=== PATIENT | female | born 1960 | race Caucasian/White ===

== ENCOUNTER 2017-06-07 08:56 | Emergency (ER) | payer MEDICAID ==
[~2017-06-07] VITALS: Ht 162.6 cm; Wt 75.0 kg
[~2017-06-07 08:56] MED LIST: CATAPRES PO; CATAPRES TD; CATAPRES0.1 MG; CLONIDINE HCL0.1 MG; DIO160 PO; DIOVAN320 MG; HYDRALAZINE HCL25 MG; HYDRALAZINE HY100 MG; HYDRALAZINE100 MG PO; HYDRALAZINE50 MG PO; ISOSORBIDE DINI10 MG PO; LABETALOL HCL200 MG; METHADONE HCL5 MG; METHADONE PO; NIT0.4 SL; NITROSTAT0.4 MG; NORCO1 TA2; PRI20 PO; RENVELA800 M1; RENVELA800 MG PO; RXMED PO; XANAX0.25 MG; [UNRECOGNIZED DRUG - CODE] PO
[2017-06-07 10:42] VITALS: BP 135/77
== END 2017-06-07 10:42 | disposition home or self-care (01) ==
LOC: ED 08:56
DX: J20.9 Acute bronchitis, unspecified (principal); I12.9 Hypertensive chronic kidney disease with stage 1 through stage 4 chronic kidney disease, or unspecified chronic kidney disease; N18.9 Chronic kidney disease, unspecified

== ENCOUNTER 2017-08-18 11:35 | Emergency (ER) | payer MEDICAID ==
[2017-08-18 13:08] VITALS: BP 194/81
== END 2017-08-18 15:10 | disposition left against medical advice (07) ==
LOC: ED 11:35
DX: Z53.21 Procedure and treatment not carried out due to patient leaving prior to being seen by health care provider (principal)

== ENCOUNTER 2017-10-20 22:24 | Inpatient (IN) | payer MEDICAID ==
[~2017-10-20] VITALS: Ht 167.6 cm; Wt 67.2 kg
[~2017-10-20 22:24] MED LIST changes: -LABETALOL HCL200 MG; +LABETALOL HYDR300 MG
[2017-10-20 22:53] VITALS: Ht 167.6 cm; Wt 67.2 kg
[2017-10-21] VITALS (7 sets, daily range): BP systolic 139–187; BP diastolic 75–97
[2017-10-21 00:47] LABS: BASOPHIL % 0.6 % (0-2)
[2017-10-21 00:50] LABS: PLATELET COUNT 121 x10^3mcL (130-400); RED CELL DISTRIBUTION WIDTH 17.3 % (11.5-14.5)
[2017-10-21 01:34] LABS: BILIRUBIN TOTAL 0.5 mg/dL (0.20-1.00); CALCIUM 7.3 mg/dL (8.5-10.1); CARBON DIOXIDE 30.7 mmol/L (21-32); POTASSIUM SERUM 4.6 mmol/L (3.5-5.1); TOTAL PROTEIN, SERUM 8.2 g/dL (6.4-8.2)
[2017-10-21 01:35] LABS: ALBUMIN 2.8 g/dL (3.4-5.0); CREATININE SERUM 6.6 mg/dL (0.6-1.0)
[2017-10-21 03:53] LABS: MAGNESIUM 2.2 mg/dL (1.8-2.4); PHOSPHOROUS 3.2 mg/dL (2.5-4.9)
[2017-10-21 04:02] LABS: FREE T4 1.57 ng/dL (0.76-1.46); T4(THYROXINE) 9.9 ug/dL (4.7-13.3)
[2017-10-21 04:03] LABS: T3 TOTAL 0.69 ng/mL
[2017-10-21 04:13] LABS: CHOLESTEROL/HDL RATIO 2.1
[2017-10-21 06:27] LABS: CALCIUM 7.4 mg/dL (8.5-10.1); CARBON DIOXIDE 30.2 mmol/L (21-32); POTASSIUM SERUM 4.8 mmol/L (3.5-5.1)
[2017-10-21 06:39] LABS: CREATININE SERUM 6.9 mg/dL (0.6-1.0)
[2017-10-21 06:57] LABS: PLATELET COUNT 108 x10^3mcL (130-400); RED CELL DISTRIBUTION WIDTH 16.9 % (11.5-14.5)
[2017-10-21 10:58] LABS: BAND NEUTROPHIL 2 % (0-10); BASOPHIL 0 % (0-2); MONOCYTE 9 % (0-7); SEGMENTED NEUTROPHILS 69 % (37-75)
[2017-10-21 11:00] LABS: PLATELET MORPHOLOGY PLATELETS DECREASED; rbc morphology (normal/abnorm) ABNORMAL (NORMAL)
[2017-10-21 11:01] LABS: ovalocyte/elliptocyte 1+; target cell (codocyte) 1+
[2017-10-22] VITALS (7 sets, daily range): BP systolic 136–190; BP diastolic 78–104
[2017-10-22 06:47] LABS: CALCIUM 7.5 mg/dL (8.5-10.1); CARBON DIOXIDE 26.6 mmol/L (21-32); PHOSPHOROUS 3.2 mg/dL (2.5-4.9); POTASSIUM SERUM 3.9 mmol/L (3.5-5.1)
[2017-10-22 06:51] LABS: BASOPHIL % 0.4 % (0-2)
[2017-10-22 06:54] LABS: CREATININE SERUM 5.3 mg/dL (0.6-1.0)
[2017-10-22 07:10] LABS: PLATELET COUNT 108 x10^3mcL (130-400); RED CELL DISTRIBUTION WIDTH 16.7 % (11.5-14.5)
[2017-10-23 05:22] VITALS: BP 159/77
[2017-10-23 06:46] LABS: PLATELET COUNT 96 x10^3mcL (130-400); RED CELL DISTRIBUTION WIDTH 17.7 % (11.5-14.5)
[2017-10-23 06:59] LABS: CALCIUM 7.3 mg/dL (8.5-10.1); CARBON DIOXIDE 25.9 mmol/L (21-32); POTASSIUM SERUM 4.4 mmol/L (3.5-5.1)
[2017-10-23 07:05] LABS: MAGNESIUM 2.1 mg/dL (1.8-2.4)
[2017-10-23 07:20] LABS: CREATININE SERUM 7.3 mg/dL (0.6-1.0)
[2017-10-23] MEDS ORDERED: LEVAQUIN750 MG PO (07:34)
[2017-10-23] MEDS ORDERED: BD LACTINEX1.4 MG PO (07:35)
[2017-10-23] MEDS ORDERED: REG10 PO (07:38)
[2017-10-23 08:56] LABS: BAND NEUTROPHIL 3 % (0-10); MONOCYTE 12 % (0-7); SEGMENTED NEUTROPHILS 61 % (37-75)
[2017-10-23 08:57] LABS: PLATELET MORPHOLOGY PLATELETS DECREASED; ovalocyte/elliptocyte 1+; rbc morphology (normal/abnorm) ABNORMAL (NORMAL)
[2017-10-23 09:34] VITALS: BP 161/95
[2017-10-23 11:08] VITALS: BP 113/75; BP 161/95
== END 2017-10-23 14:12 | disposition home or self-care (01) | DRG 247 ==
LOC: ED 22:24 → DU 10-21 01:11 → MU 10-23 08:57
PROVIDERS: Emergency Medicine; Family Medicine
DX: K56.7 Ileus, unspecified (principal); N17.0 Acute kidney failure with tubular necrosis; E43 Unspecified severe protein-calorie malnutrition; J18.9 Pneumonia, unspecified organism; N18.6 End stage renal disease; I12.0 Hypertensive chronic kidney disease with stage 5 chronic kidney disease or end stage renal disease; D69.6 Thrombocytopenia, unspecified; E87.1 Hypo-osmolality and hyponatremia; F11.20 Opioid dependence, uncomplicated; F41.9 Anxiety disorder, unspecified; D63.1 Anemia in chronic kidney disease; F17.210 Nicotine dependence, cigarettes, uncomplicated; Z99.2 Dependence on renal dialysis; Z68.26 Body mass index [BMI] 26.0-26.9, adult
CPT/HCPCS: 83880; 84439; 94150; 99406; J0696; J1200; J2405; J7030; J7620; J8597; Q0092; Q0162; Q0163; Q9967

== ENCOUNTER 2017-10-26 15:52 | Emergency (ER) | payer MEDICAID ==
[~2017-10-26] VITALS: Ht 167.6 cm; Wt 29.6 kg
[~2017-10-26 15:52] MED LIST changes: +BD LACTINEX1.4 MG PO; +LEVAQUIN750 MG PO; +REG10 PO
[2017-10-26 16:59] LABS: BASOPHIL % 0.4 % (0-2)
[2017-10-26 17:06] LABS: PLATELET COUNT 112 x10^3mcL (130-400); RED CELL DISTRIBUTION WIDTH 17.4 % (11.5-14.5)
[2017-10-26 17:08] LABS: CALCIUM 7.5 mg/dL (8.5-10.1); CARBON DIOXIDE 33.4 mmol/L (21-32); CREATININE SERUM 3.8 mg/dL (0.6-1.0); POTASSIUM SERUM 3.2 mmol/L (3.5-5.1)
[2017-10-26 17:12] LABS: ALBUMIN 2.4 g/dL (3.4-5.0); BILIRUBIN TOTAL 0.4 mg/dL (0.20-1.00); TOTAL PROTEIN, SERUM 7.6 g/dL (6.4-8.2)
[2017-10-26 19:09] VITALS: BP 134/74
== END 2017-10-26 19:09 | disposition home or self-care (01) ==
LOC: ED 15:52
PROVIDERS: Emergency Medicine
DX: J45.901 Unspecified asthma with (acute) exacerbation (principal); E11.22 Type 2 diabetes mellitus with diabetic chronic kidney disease; I13.2 Hypertensive heart and chronic kidney disease with heart failure and with stage 5 chronic kidney disease, or end stage renal disease; I50.9 Heart failure, unspecified; N18.6 End stage renal disease; Z99.2 Dependence on renal dialysis; Z88.0 Allergy status to penicillin
CPT/HCPCS: 36415; 83880; J7512; J7613; J7644

== ENCOUNTER 2017-10-28 17:53 | Emergency (ER) | payer MEDICAID ==
[~2017-10-28] VITALS: Ht 170.2 cm; Wt 65.8 kg
[~2017-10-28 17:53] MED LIST changes: -CATAPRES0.1 MG; +CATAPRES0.3 MG PO
[2017-10-28 17:56] VITALS: Ht 170.2 cm; Wt 65.8 kg
[2017-10-28 19:07] LABS: BASOPHIL % 0.3 % (0-2); PLATELET COUNT 139 x10^3mcL (130-400)
[2017-10-28 19:08] LABS: RED CELL DISTRIBUTION WIDTH 17.5 % (11.5-14.5)
[2017-10-28 19:11] LABS: CALCIUM 8.3 mg/dL (8.5-10.1); CARBON DIOXIDE 31.7 mmol/L (21-32); POTASSIUM SERUM 4.3 mmol/L (3.5-5.1)
[2017-10-28 19:16] LABS: BILIRUBIN TOTAL 0.4 mg/dL (0.20-1.00)
[2017-10-28 19:18] LABS: ALBUMIN 2.7 g/dL (3.4-5.0); TOTAL PROTEIN, SERUM 8.4 g/dL (6.4-8.2)
[2017-10-28 21:21] LABS: MAGNESIUM 2.4 mg/dL (1.8-2.4); PHOSPHOROUS 2.1 mg/dL (2.5-4.9)
[2017-10-28 21:22] LABS: CHOLESTEROL/HDL RATIO 2.3
[2017-10-28 21:29] LABS: T3 TOTAL 0.68 ng/mL
[2017-10-28 21:31] LABS: FREE T4 1.23 ng/dL (0.76-1.46); FREE THYROXINE INDEX 2.4 ug/dL (1.4-4.5); T4(THYROXINE) 7.7 ug/dL (4.7-13.3)
[2017-10-29 03:32] LABS: BASOPHIL % 0.1 % (0-2); PLATELET COUNT 139 x10^3mcL (130-400)
[2017-10-29 03:35] LABS: RED CELL DISTRIBUTION WIDTH 17.6 % (11.5-14.5)
[2017-10-29 04:26] LABS: CARBON DIOXIDE 31.9 mmol/L (21-32); POTASSIUM SERUM 5.5 mmol/L (3.5-5.1)
[2017-10-29 04:27] LABS: CALCIUM 8.1 mg/dL (8.5-10.1)
[2017-10-29 04:52] LABS: CREATININE SERUM 4.9 mg/dL (0.6-1.0)
[2017-10-29 15:38] VITALS: BP 113/63
== END 2017-10-29 15:38 | disposition home or self-care (01) ==
LOC: ED 17:53
PROVIDERS: Emergency Medicine; Student in an Organized Health Care Education/Training Program
DX: I50.9 Heart failure, unspecified (principal); I12.0 Hypertensive chronic kidney disease with stage 5 chronic kidney disease or end stage renal disease; D61.818 Other pancytopenia; N18.6 End stage renal disease; Z88.0 Allergy status to penicillin
CPT/HCPCS: 83880; 84439; J7030; J7620; Q0092

== ENCOUNTER 2017-11-01 18:29 | Emergency (ER) | payer MEDICAID ==
[~2017-11-01] VITALS: Ht 167.6 cm; Wt 67.1 kg
[2017-11-01 18:39] VITALS: Ht 167.6 cm; Wt 67.1 kg
[2017-11-01 20:42] VITALS: BP 153/87
== END 2017-11-01 20:42 | disposition home or self-care (01) ==
LOC: ED 18:29
DX: R07.89 Other chest pain (principal); J45.909 Unspecified asthma, uncomplicated; I13.0 Hypertensive heart and chronic kidney disease with heart failure and stage 1 through stage 4 chronic kidney disease, or unspecified chronic kidney disease; N18.9 Chronic kidney disease, unspecified; I50.9 Heart failure, unspecified; Z88.0 Allergy status to penicillin
CPT/HCPCS: J1885

== ENCOUNTER 2017-12-08 11:07 | Emergency (ER) | payer MEDICAID ==
[~2017-12-08] VITALS: Ht 167.6 cm; Wt 67.6 kg
[2017-12-08 11:15] VITALS: Ht 167.6 cm; Wt 67.6 kg
[2017-12-08 12:42] LABS: BASOPHIL % 0.5 % (0-2)
[2017-12-08 12:43] LABS: PLATELET COUNT 120 x10^3mcL (130-400); RED CELL DISTRIBUTION WIDTH 17.7 % (11.5-14.5)
[2017-12-08 12:56] LABS: BILIRUBIN TOTAL 0.5 mg/dL (0.20-1.00); CALCIUM 8.3 mg/dL (8.5-10.1); CARBON DIOXIDE 33.3 mmol/L (21-32); POTASSIUM SERUM 5.5 mmol/L (3.5-5.1); TOTAL PROTEIN, SERUM 7.7 g/dL (6.4-8.2)
[2017-12-08 12:59] LABS: ALBUMIN 2.9 g/dL (3.4-5.0); CREATININE SERUM 5.9 mg/dL (0.6-1.0)
[2017-12-08 14:46] VITALS: BP 170/93
== END 2017-12-08 15:36 | disposition home or self-care (01) ==
LOC: ED 11:07
PROVIDERS: Emergency Medicine
DX: I13.2 Hypertensive heart and chronic kidney disease with heart failure and with stage 5 chronic kidney disease, or end stage renal disease (principal); I50.9 Heart failure, unspecified; N18.6 End stage renal disease; J90 Pleural effusion, not elsewhere classified; J98.11 Atelectasis; R79.89 Other specified abnormal findings of blood chemistry; L29.9 Pruritus, unspecified; E46 Unspecified protein-calorie malnutrition; D64.9 Anemia, unspecified; Z99.2 Dependence on renal dialysis; Z72.0 Tobacco use
CPT/HCPCS: 36600; 83880; J1200

== ENCOUNTER 2017-12-29 14:58 | Emergency (ER) | payer MEDICAID ==
[~2017-12-29] VITALS: Ht 162.6 cm; Wt 65.8 kg
[2017-12-29 15:01] VITALS: Ht 162.6 cm; Wt 65.8 kg
[2017-12-29 15:40] LABS: BASOPHIL % 0.5 % (0-2)
[2017-12-29 15:44] LABS: PLATELET COUNT 118 x10^3mcL (130-400); RED CELL DISTRIBUTION WIDTH 16.7 % (11.5-14.5)
[2017-12-29 16:06] VITALS: BP 179/94
[2017-12-29 16:16] LABS: BILIRUBIN TOTAL 0.53 mg/dL (0.20-1.00); CALCIUM 8.5 mg/dL (8.5-10.1); CARBON DIOXIDE 32.8 mmol/L (21-32); TOTAL PROTEIN, SERUM 7.2 g/dL (6.4-8.2)
[2017-12-29 16:19] LABS: ALBUMIN 2.8 g/dL (3.4-5.0)
[2017-12-31 23:24] LABS: CREATININE SERUM 6.1 mg/dL (0.6-1.0)
== END 2017-12-29 17:20 | disposition home or self-care (01) ==
LOC: ED 14:58
PROVIDERS: Emergency Medicine
DX: M25.511 Pain in right shoulder (principal); M25.512 Pain in left shoulder; R07.89 Other chest pain; Z88.0 Allergy status to penicillin
CPT/HCPCS: 83880; J1200; J1885

== ENCOUNTER 2018-01-06 14:49 | Inpatient (IN) | payer MEDICAID ==
[~2018-01-06] VITALS: Ht 167.6 cm; Wt 65.8 kg
[2018-01-06 14:57] VITALS: Ht 167.6 cm; Wt 65.8 kg
[2018-01-06 15:49] LABS: BASOPHIL % 0.7 % (0-2); PLATELET COUNT 142 x10^3mcL (130-400)
[2018-01-06 15:50] LABS: RED CELL DISTRIBUTION WIDTH 16.7 % (11.5-14.5)
[2018-01-06 15:54] LABS: CALCIUM 8.4 mg/dL (8.5-10.1); CARBON DIOXIDE 34.6 mmol/L (21-32); CREATININE SERUM 3.7 mg/dL (0.6-1.0); POTASSIUM SERUM 3.8 mmol/L (3.5-5.1)
[2018-01-06 15:59] LABS: BILIRUBIN TOTAL 0.98 mg/dL (0.20-1.00); TOTAL PROTEIN, SERUM 7.4 g/dL (6.4-8.2)
[2018-01-06 16:01] LABS: ALBUMIN 2.8 g/dL (3.4-5.0)
[2018-01-06 16:35] LABS: T3 TOTAL 0.99 ng/mL
[2018-01-06 16:37] LABS: PHOSPHOROUS 2.7 mg/dL (2.5-4.9)
[2018-01-06 16:40] LABS: CHOLESTEROL/HDL RATIO 2.3
[2018-01-06 16:45] LABS: FREE T4 1.47 ng/dL (0.76-1.46); FREE THYROXINE INDEX 2.9 ug/dL (1.4-4.5); T4(THYROXINE) 9.5 ug/dL (4.7-13.3)
[2018-01-06 18:22] VITALS: BP 164/85
[2018-01-06 20:22] VITALS: BP 169/82
[2018-01-06 20:30] VITALS: BP 152/86
[2018-01-06 23:55] VITALS: BP 160/77
[2018-01-07 04:48] VITALS: BP 170/77
[2018-01-07 06:49] LABS: BASOPHIL % 0.4 % (0-2); PLATELET COUNT 136 x10^3mcL (130-400)
[2018-01-07 07:02] VITALS: BP 141/71
[2018-01-07 07:09] LABS: CALCIUM 8.6 mg/dL (8.5-10.1); CARBON DIOXIDE 31.1 mmol/L (21-32); MAGNESIUM 2.4 mg/dL (1.8-2.4); PHOSPHOROUS 3.7 mg/dL (2.5-4.9); POTASSIUM SERUM 5.4 mmol/L (3.5-5.1)
[2018-01-07 07:11] LABS: CREATININE SERUM 5.2 mg/dL (0.6-1.0)
[2018-01-07 07:12] LABS: RED CELL DISTRIBUTION WIDTH 17.8 % (11.5-14.5)
[2018-01-07 09:09] VITALS: BP 134/68
== END 2018-01-07 14:00 | disposition left against medical advice (07) | DRG 203 ==
LOC: ED 14:49 → DU 15:46
PROVIDERS: Emergency Medicine; Family Medicine
DX: M94.0 Chondrocostal junction syndrome [Tietze] (principal); N17.0 Acute kidney failure with tubular necrosis; E43 Unspecified severe protein-calorie malnutrition; I13.2 Hypertensive heart and chronic kidney disease with heart failure and with stage 5 chronic kidney disease, or end stage renal disease; N18.6 End stage renal disease; E11.22 Type 2 diabetes mellitus with diabetic chronic kidney disease; I50.9 Heart failure, unspecified; Z99.2 Dependence on renal dialysis; Z83.3 Family history of diabetes mellitus; Z82.49 Family history of ischemic heart disease and other diseases of the circulatory system; Z82.3 Family history of stroke; Z87.891 Personal history of nicotine dependence; Z68.23 Body mass index [BMI] 23.0-23.9, adult; D63.1 Anemia in chronic kidney disease
CPT/HCPCS: 83880; 84439; J1200; J2270; Q0092; Q0163; Q9967

== ENCOUNTER 2018-01-21 02:03 | Emergency (ER) | payer MEDICAID ==
[2018-01-21 03:24] LABS: BASOPHIL % 0.9 % (0-2); PLATELET COUNT 177 x10^3mcL (130-400)
[2018-01-21 03:29] LABS: RED CELL DISTRIBUTION WIDTH 17.5 % (11.5-14.5)
[2018-01-21 04:10] LABS: BILIRUBIN TOTAL 0.9 mg/dL (0.20-1.00); CALCIUM 8.3 mg/dL (8.5-10.1); CARBON DIOXIDE 23.2 mmol/L (21-32); POTASSIUM SERUM 5.3 mmol/L (3.5-5.1); TOTAL PROTEIN, SERUM 7.7 g/dL (6.4-8.2)
[2018-01-21 04:17] LABS: ALBUMIN 2.9 g/dL (3.4-5.0); CREATININE SERUM 5.5 mg/dL (0.6-1.0)
[2018-01-21 05:22] VITALS: BP 178/85
== END 2018-01-21 05:52 | disposition home or self-care (01) ==
LOC: ED 02:03
PROVIDERS: Emergency Medicine
DX: R00.2 Palpitations (principal); R11.0 Nausea; M79.1 Myalgia; F11.23 Opioid dependence with withdrawal; I50.9 Heart failure, unspecified; I11.9 Hypertensive heart disease without heart failure; Z88.0 Allergy status to penicillin
CPT/HCPCS: J2270